=== PATIENT | female | born 1970 | race Caucasian/White ===

== ENCOUNTER 2016-08-28 13:51 | Emergency (ER) | payer OTHER ==
[~2016-08-28] VITALS: Ht 165.1 cm; Wt 65.8 kg
[2016-08-28 13:54] VITALS: BP_SYST 135
[2016-08-28 14:51] LABS: HEMOGLOBIN 14.1 g/dL (12.0-16.0); LYMPHOCYTES # (AUTO) 2.2 K/uL (1.0-5.5); MONOCYTES # (AUTO) 0.3 K/uL (0.0-1.0); RED CELL DISTRIBUTION WIDTH 14.5 % (9.0-15.0)
[2016-08-28 15:03] LABS: CALCIUM 9.3 mg/dL (8.4-11.0); CREATININE 0.71 mg/dL (0.55-1.30); POTASSIUM 3.8 mmol/L (3.5-5.1)
[2016-08-28 15:10] LABS: ALBUMIN 4.4 g/dL (3.4-4.8); BASOPHILS % (AUTO) 0.5 % (0.0-2.0); EOSINOPHILS % (AUTO) 0.7 % (0.0-4.0); HEMATOCRIT 42.3 % (36-48); LYMPHOCYTES % (AUTO) 35.2 % (20.5-51.5); MEAN CORPUSCULAR HEMOGLOBIN 31 pg (27-31); MEAN CORPUSCULAR HGB CONC 33 % (32-36); MEAN CORPUSCULAR VOLUME 94 fL (79.0-98.0); MONOCYTES % (AUTO) 4.5 % (1.7-9.3); NEUTROPHILS # (AUTO) 3.9 K/uL (1.8-7.7); NEUTROPHILS % (AUTO) 59.1 % (40.0-70.0); PLATELET COUNT (AUTO) 287 K/uL (130-430); RED BLOOD CELL COUNT(AUTO) 4.48 MIL/uL (4.2-6.2); TOTAL BILIRUBIN 0.8 mg/dL (0.0-1.0); TOTAL PROTEIN, SERUM 8.4 g/dL (6.4-8.3); WHITE BLOOD COUNT (AUTO) 6.4 K/uL (4.8-10.8)
[2016-08-28] MEDS: KETOROLAC TROMETHAMINE 30 MG VIAL IVP ONE (16:00)
[2016-08-28 16:54] VITALS: BP_SYST 132
== END 2016-08-28 16:54 | disposition home or self-care (01) ==
LOC: SED 13:51
DX: T41.3X5A Adverse effect of local anesthetics, initial encounter (principal); Y92.89 Other specified places as the place of occurrence of the external cause
CPT/HCPCS: 36415; 70486; 80053; 84703; 85025; 93005; 96374; 99285; J1885